=== PATIENT | female | born 1955 | race Caucasian/White ===

== ENCOUNTER 2017-11-16 10:23 | Outpatient (REF) | payer BC, SELFPAY ==
[2017-11-16 21:03] LABS: Anion Gap 10.6 mmol/L (3-11); BUN 24 mg/dL (7-18); CO2 30.4 mmol/L (21.0-32.0); CREATININE 0.86 mg/dL (0.55-1.02); Calcium 9.8 mg/dL (8.5-10.1); Chloride 98 mmol/L (98-107); Cholesterol 269 mg/dL (50-200); Glucose 100 mg/dL (70-100); HDL Cholesterol 63 mg/dL (40-60); LDL CHOLESTEROL 183 mg/dL (<100); Magnesium 1.8 mg/dL (1.8-2.4); Potassium 4.1 mmol/L (3.5-5.1); Sodium 139 mmol/L (136-145); Triglyceride 173 mg/dL (30-150)
== END 2017-11-16 10:43 ==
LOC: NCHCN 10:23
PROVIDERS: Visit Provider Internal Medicine
DX: Z00.00 Encounter for general adult medical examination without abnormal findings (principal); N25.89 Other disorders resulting from impaired renal tubular function; J45.20 Mild intermittent asthma, uncomplicated
CPT/HCPCS: 80048; 80061; 83721; 83735

== ENCOUNTER 2020-12-02 12:54 | Outpatient (REF) | payer MEDICARE, SELFPAY ==
--- NOTE | 2020-12-02 09:15 | SKI_PTH ---
PATIENT: Iris Cruz LOC: [facility] U#:[id number] AGE/SX: 65/F ROOM: RE12/02/[address]: Jaymie Lopez : 1955 BED: DIS: 12/02/2020 SPEC #: [id number] RECD: 12/03/20 12:36 STATUS: SELMA REKamron #: [id number] VALENCIA: 12/02/20 09:[address]: Jaymie Moreno DEPT: Surgical Specimen RECD BY: Jayne Goowdin ENTERED: 12/03/20 12:37 SP TYPE: MONSE WALL DR: None Tissues: 1 - SKIN BIOPSY(SHAVE/PUNCH) Procedures: SKIN LEVEL 4 Comments: [id number]
== END 2020-12-02 12:55 | disposition home or self-care (01) ==
LOC: LBN 12:54
PROVIDERS: Visit Provider Nurse Practitioner Family
DX: L57.0 Actinic keratosis (principal)
CPT/HCPCS: 88305

== ENCOUNTER 2020-12-07 09:55 | Outpatient (REF) | payer OTHER, SELFPAY ==
[2020-12-07 15:09] LABS: Abs Immature Grans 0.05 10^3/uL (0.0-0.06); Absolute Basophil Count 0.08 10^3/uL (0.0-0.2); Absolute Eosinophil Count 0.25 10^3/uL (0.0-0.7); Absolute Lymphocyte Count 1.89 10^3/uL (1.2-3.4); Absolute Monocyte Count 0.81 10^3/uL (0.1-0.8); Absolute Neutrophil Count 5.47 10^3/uL (1.2-6.7); Basophils % 0.9; Eosinophils % 2.9; HCT 46.9 % (36.0-46.0); HGB 14.8 g/dL (11.2-15.7); Immature Grans % 0.6; Lymphocytes % 22.1; MCH 29.8 pg (27.0-33.0); MCHC 31.6 % (32.0-36.0); MCV 94.4 fL (80-95); MPV 9.2 fL (8.0-11.0); Monocytes % 9.5; Nucleated RBC 0 %; Platelet Count 312 10^3/uL (130-400); RBC 4.97 10^6/uL (3.93-5.22); RDW 12.4 % (11.7-14.6); RDW-SD 42.9 fL; WBC 8.55 10^3/uL (4.4-10.8)
[2020-12-07 15:17] LABS: ALT 26 U/L (14-59); AST 20 U/L (15-37); Albumin 3.8 g/dL (3.4-5.0); Alkaline Phosphatase 74 U/L (46-116); Anion Gap 6.9 mmol/L (3-11); BUN 22 mg/dL (7-18); Bilirubin, Total 0.3 mg/dL (0.2-1.0); CO2 31.1 mmol/L (21.0-32.0); CREATININE 0.8 mg/dL (0.55-1.02); Calcium 9.5 mg/dL (8.5-10.1); Calculated LDL 141 mg/dL (<100); Chloride 102 mmol/L (98-107); Cholesterol 220 mg/dL (<200); Glucose 97 mg/dL (74-106); HDL Cholesterol 62 mg/dL (40-60); Potassium 4.3 mmol/L (3.5-5.1); Sodium 140 mmol/L (136-145); Total Protein 6.8 g/dL (6.4-8.2); Triglyceride 86 mg/dL (<150)
== END 2020-12-07 09:56 | disposition home or self-care (01) ==
LOC: NCHCN 09:55
PROVIDERS: Visit Provider Internal Medicine
DX: E78.5 Hyperlipidemia, unspecified (principal); D75.1 Secondary polycythemia
CPT/HCPCS: 80053; 80061; 85025

== ENCOUNTER 2021-09-14 21:15 | Outpatient (REF) | payer MEDICARE, SELFPAY ==
[2021-09-14 21:42] LABS: Abs Immature Grans 0.05 10^3/uL (0.0-0.06); Absolute Basophil Count 0.07 10^3/uL (0.0-0.2); Absolute Eosinophil Count 0.02 10^3/uL (0.0-0.7); Absolute Monocyte Count 0.96 10^3/uL (0.1-0.8); Absolute Neutrophil Count 8.13 10^3/uL (1.2-6.7); Basophils % 0.6; Eosinophils % 0.2; HCT 46.1 % (36.0-46.0); Immature Grans % 0.5; Lymphocytes % 16.3; MCH 30.7 pg (27.0-33.0); MCHC 34.7 % (32.0-36.0); MCV 89 fL (80-95); MPV 9.3 fL (8.0-11.0); Monocytes % 8.7; Neutrophils % 73.7; Platelet Count 341 10^3/uL (130-400); RBC 5.21 10^6/uL (3.93-5.22); RDW 11.9 % (11.7-14.6); RDW-SD 38.8 fL; WBC 11.03 10^3/uL (4.4-10.8)
[2021-09-14 21:59] LABS: TSH (W/Ref FT4) 0.65 uIU/mL (0.36-3.74)
[2021-09-14 22:14] LABS: ALT 24 U/L (14-59); AST 17 U/L (15-37); Albumin 3.9 g/dL (3.4-5.0); Alkaline Phosphatase 73 U/L (46-116); Anion Gap 10.7 mmol/L (3-11); BUN 21 mg/dL (7-18); Bilirubin, Total 0.4 mg/dL (0.2-1.0); CO2 27.3 mmol/L (21.0-32.0); CREATININE 0.9 mg/dL (0.55-1.02); Calcium 9.2 mg/dL (8.5-10.1); Chloride 96 mmol/L (98-107); Glucose 129 mg/dL (74-106); Potassium 3.8 mmol/L (3.5-5.1); Sodium 134 mmol/L (136-145)
== END 2021-09-14 21:16 | disposition home or self-care (01) ==
LOC: NCHCN 21:15
PROVIDERS: Visit Provider Family Medicine
DX: F41.9 Anxiety disorder, unspecified (principal); R63.4 Abnormal weight loss; E66.9 Obesity, unspecified
CPT/HCPCS: 80053; 84443; 85025

== ENCOUNTER 2022-01-03 16:21 | Outpatient (REF) | payer MEDICARE, SELFPAY ==
[2022-01-03 15:08] LABS: Calculated LDL 135 mg/dL (<100); Cholesterol 231 mg/dL (<200); Glucose 110 mg/dL (74-106); HDL Cholesterol 70 mg/dL (40-60); Triglyceride 133 mg/dL (<150)
== END 2022-01-03 16:22 | disposition home or self-care (01) ==
LOC: NCHCN 16:21
PROVIDERS: Visit Provider Internal Medicine
DX: Z13.1 Encounter for screening for diabetes mellitus (principal); Z00.00 Encounter for general adult medical examination without abnormal findings; Z13.220 Encounter for screening for lipoid disorders
CPT/HCPCS: 80061; 82947

== ENCOUNTER 2022-05-19 21:15 | Outpatient (REF) | payer MEDICARE, SELFPAY ==
--- OUTSIDE RECORDS SUMMARY | 2022-05-19 21:22 | XMS_ITS | CCD ---
Author Name Unknown Address [address] [place] [address] [id number] Organization Unknown Address [address] [place], [place] [id number] Care Team Providers Care Educational Manager Name Role Phone MIRTA DE Attending Physician [phone] Vital Signs Unknown or Not Available. Allergies Allergy Code Allergy Type Reaction Status PENICILLINS (CLASS) 16819 Drug allergy Hives Act jos SULFA (sulfonamide) 0 Drug allergy RASH, ITCHING Active Procedures Unknown or Not Available. History of Immunizations Unknown or Not Available. Problems Unknown or Not Available. Results Unknown or Not Available. Active Medications Unknown or Not Available. Medications Administered During Visit Unknown or Not Available. Encounters Encounter Diagnosis Diagnosis Code Start Date Other abnormal and inconclus jos findings on diagnostic imaging of breast R928 02/09/2021 Social History Smoking Status Code Start Date End Date Former smoker [id number] Patient Decision Aids Unknown or Not Available. Discharge Instructions You were admitted to on 02/09/2021 09:22 with a principal diagnosis of Other abnormal and inconclusive findings on diagnostic imaging of breast You were discharged from on 02/09/2021 09:22 Should you have any questions prior to discharge, please contact a member of your healthcare team. If you have left the hospital and have any questions, please contact your primary care physician. Chief Complaint and Reason For Visit Chief Complaint Date of Onset LT BREAST 6 MOS F/U Function Status Unknown or Not Available. Plan of Care Unknown or Not Available. Referral/Transition of Care Unknown or Not Available.
--- OUTSIDE RECORDS SUMMARY | 2022-05-19 21:23 | XMS_ITS | CCD ---
Author Name Unknown Address [address] [place] [address] [id number] Organization Unknown Address [address] [place], [place] [id number] Care Team Providers Care Hydroelectric Plant Structural Engineer Name Role Phone NADYA, WILLIAM Tenzin Attending Physician [phone] Vital Signs Vital Sign Value Unit Date/Time Recent/Initial ? BP Systolic 127 mmHg 09/29/2021 09:20 Initial VS BP Diastolic 62 mmHg 09/29/2021 09:20 Initia l VS Respiratory Rate 22 bpm 09/29/2021 09:20 In itial VS Heart Rate 67 bpm 09/29/2021 09:20 Initial VS O2 % BldC Oximetry 98 % 09/29/2021 09:20 Initial VS Body Temperature 36 degrees 09/29/2021 09:20 In itial VS Allergies Allergy Code Allergy Type Reaction Status PENICILLINS (CLASS) 54945 Drug allergy Hives Act jos SULFA (sulfonamide) 0 Drug allergy RASH, ITCHING Active Procedures Procedure Code Procedure Type Date Colorectal Cancer Screening; Colonoscopy On Individual At High Risk G0105 CPT 09/29/2021 History of Immunizations Unknown or Not Available. Problems Unknown or Not Available. Results Unknown or Not Available. Active Medications Unknown or Not Available. Medications Administered During Visit Unknown or Not Available. Encounters Encounter Diagnosis Diagnosis Code Start Date Encounter for screening for malignant neoplasm o f colon Z1211 09/29/2021 Social History Smoking Status Code Start Date End Date Former smoker [id number] Patient Decision Aids Unknown or Not Available. Discharge Instructions You were admitted to [facility] on 09/29/2021 07:11 with a principal diagnosis of Encounter for screening for malignant neoplasm of colon You had the following procedures done:Colorectal Cancer Screening; Colonoscopy On Individual At High Risk You were discharged from [facility] on 09/29/2021 10:05 Should you have any questions prior to discharge, please contact a member of your healthcare team. If you have left the hospital and have any questions, please contact your primary care physician. Chief Complaint and Reason For Visit Unknown or Not Available. Function Status Unknown or Not Available. Plan of Care Unknown or Not Available. Referral/Transition of Care Unknown or Not Available.
--- OUTSIDE RECORDS SUMMARY | 2022-05-19 21:23 | XMS_ITS | CCD ---
Author Name Unknown Address [address] [place] [address] [id number] Organization Unknown Address [address] [place], [place] [id number] Care Team Providers Care Gunner'S Mate G Name Role Phone KANDI GOMEZ Attending Physician [phone] Vital Signs Unknown or Not Available. Allergies Allergy Code Allergy Type Reaction Status PENICILLINS (CLASS) 74427 Drug allergy Hives Act jos SULFA (sulfonamide) 0 Drug allergy RASH, ITCHING Active Procedures Unknown or Not Available. History of Immunizations Unknown or Not Available. Problems Unknown or Not Available. Results Unknown or Not Available. Active Medications Unknown or Not Available. Medications Administered During Visit Unknown or Not Available. Encounters Encounter Diagnosis Diagnosis Code Start Date Encounter for screening for osteoporosis [id number] 08/03/2020 Social History Smoking Status Code Start Date End Date Former smoker [id number] Patient Decision Aids Unknown or Not Available. Discharge Instructions You were admitted to [facility] on 08/03/2020 13:33 with a principal diagnosis of Encounter for screening for osteoporosis You were discharged from [facility] on 08/03/2020 13:33 Should you have any questions prior to [...]
--- OUTSIDE RECORDS SUMMARY | 2022-05-19 21:23 | XMS_ITS | CCD ---
Author Name Unknown Address [address] [place] [address] [id number] Organization Unknown Address [address] [place], [place] [phone] Care Team Providers Care Tobacco Weigher Name Role Phone MIRTA DE Attending Physician [phone] Vital Signs Unknown or Not Available. Allergies Allergy Code Allergy Type Reaction Status PENICILLINS (CLASS) 89036 Drug allergy Hives Act jos SULFA (sulfonamide) 0 Drug allergy RASH, ITCHING Active Procedures Unknown or Not Available. History of Immunizations Unknown or Not Available. Problems Unknown or Not Available. Results Unknown or Not Available. Active Medications Unknown or Not Available. Medications Administered During Visit Unknown or Not Available. Encounters Encounter Diagnosis Diagnosis Code Start Date Encounter for screening mamm ogram for malignant neoplasm of breast Z1231 08/01/2021 Social History Smoking Status Code Start Date End Date Former smoker [id number] Patient Decision Aids Unknown or Not Available. Discharge Instructions You were admitted to [facility] on 08/01/2021 08:44 with a principal diagnosis of Encounter for screening mammogram for malignant neoplasm of breast You were discharged from [facility] on 08/01/2021 08:44 Should you have any questions prior to discharge, please contact a member of your healthcare team. If you have left the hospital and have any questions, please contact your primary care physician. Chief Complaint and Reason For Visit Chief Complaint Date of Onset SCREENING Function Status Unknown or Not Available. Plan of Care Unknown or Not Available. Referral/Transition of Care Unknown or Not Available.
[2022-05-19 21:54] LABS: Abs Immature Grans 0.08 10^3/uL (0.0-0.06); Absolute Basophil Count 0.09 10^3/uL (0.0-0.2); Absolute Eosinophil Count 0.04 10^3/uL (0.0-0.7); Absolute Lymphocyte Count 1.51 10^3/uL (1.2-3.4); Absolute Monocyte Count 1.16 10^3/uL (0.1-0.8); Basophils % 0.7; Eosinophils % 0.3; HCT 48.6 % (36.0-46.0); HGB 16.7 g/dL (11.2-15.7); Immature Grans % 0.6; Lymphocytes % 12.1; MCH 30.4 pg (27.0-33.0); MCHC 34.4 % (32.0-36.0); MCV 89 fL (80-95); MPV 8.8 fL (8.0-11.0); Monocytes % 9.3; Platelet Count 416 10^3/uL (130-400); RBC 5.49 10^6/uL (3.93-5.22); RDW 12.3 % (11.7-14.6); RDW-SD 40.1 fL; WBC 12.46 10^3/uL (4.4-10.8)
[2022-05-19 21:59] LABS: Absolute Neutrophil Count 9.59 10^3/uL (1.2-6.7)
[2022-05-19 22:03] LABS: Bilirubin Negative (Negative); Blood Negative (Negative); Clarity Clear (Clear); Glucose Negative (Negative); Ketones Negative (Negative); Leukocyte Esterase Negative (Negative); Nitrite Negative (Negative); Urobilinogen 0.2 mg/dL (Up to 0.2)
[2022-05-19 22:11] LABS: ALT 31 U/L (14-59); AST 20 U/L (15-37); Albumin 3.8 g/dL (3.4-5.0); Alkaline Phosphatase 76 U/L (46-116); Anion Gap 6.9 mmol/L (3-11); BUN 27 mg/dL (7-18); Bilirubin, Total 0.4 mg/dL (0.2-1.0); CO2 30.1 mmol/L (21.0-32.0); Calcium 9.6 mg/dL (8.5-10.1); Chloride 98 mmol/L (98-107); Estimated GFR 61.36 (mL/min/1.73m2); Glucose 135 mg/dL (74-106); Potassium 3.4 mmol/L (3.5-5.1); Sodium 135 mmol/L (136-145); TSH 0.85 uIU/mL (0.36-3.74); Total Protein 7.8 g/dL (6.4-8.2)
== END 2022-05-19 21:16 | disposition home or self-care (01) ==
LOC: NCHCN 21:15
PROVIDERS: Visit Provider Internal Medicine
DX: R63.4 Abnormal weight loss (principal); R30.0 Dysuria; R11.0 Nausea
CPT/HCPCS: 80053; 81003; 84443; 85025

== ENCOUNTER 2022-06-22 14:15 | Outpatient (REF) | payer MEDICARE, SELFPAY ==
[2022-06-22 21:04] LABS: Abs Immature Grans 0.05 10^3/uL (0.0-0.06); Absolute Eosinophil Count 0.11 10^3/uL (0.0-0.7); Absolute Lymphocyte Count 1.88 10^3/uL (1.2-3.4); Absolute Monocyte Count 0.87 10^3/uL (0.1-0.8); Absolute Neutrophil Count 6.55 10^3/uL (1.2-6.7); Eosinophils % 1.2; HCT 43.2 % (36.0-46.0); HGB 14.5 g/dL (11.2-15.7); Immature Grans % 0.5; Lymphocytes % 19.7; MCHC 33.6 % (32.0-36.0); MCV 93 fL (80-95); MPV 9.2 fL (8.0-11.0); Monocytes % 9.1; Neutrophils % 68.5; Platelet Count 339 10^3/uL (130-400); RBC 4.67 10^6/uL (3.93-5.22); RDW 12.7 % (11.7-14.6); RDW-SD 43.2 fL; WBC 9.56 10^3/uL (4.4-10.8)
[2022-06-22 21:13] LABS: Anion Gap 6.8 mmol/L (3-11); BUN 29 mg/dL (7-18); CO2 29.2 mmol/L (21.0-32.0); Chloride 101 mmol/L (98-107); Estimated GFR 61.36 (mL/min/1.73m2); Glucose 95 mg/dL (74-106); Potassium 3.8 mmol/L (3.5-5.1); Sodium 137 mmol/L (136-145)
== END 2022-06-22 14:16 | disposition home or self-care (01) ==
LOC: NCHCN 14:15
PROVIDERS: Visit Provider Internal Medicine
DX: D75.1 Secondary polycythemia (principal); E87.6 Hypokalemia
CPT/HCPCS: 80048; 85025

== ENCOUNTER 2022-12-11 13:59 | Outpatient (REF) | payer MEDICARE, SELFPAY ==
[2022-12-11 14:59] LABS: HCT 48.6 % (36.0-46.0); HGB 16.7 g/dL (11.2-15.7); MCH 31.2 pg (27.0-33.0); MCHC 34.4 % (32.0-36.0); MCV 91 fL (80-95); MPV 8.9 fL (8.0-11.0); Platelet Count 325 10^3/uL (130-400); RBC 5.35 10^6/uL (3.93-5.22); RDW 12.5 % (11.7-14.6); RDW-SD 40.9 fL; WBC 6.83 10^3/uL (4.4-10.8)
[2022-12-11 15:40] LABS: Anion Gap 8.5 mmol/L (3-11); BUN 17 mg/dL (7-18); CO2 29.5 mmol/L (21.0-32.0); CREATININE 0.8 mg/dL (0.55-1.02); Calcium 10.3 mg/dL (8.5-10.1); Chloride 94 mmol/L (98-107); Estimated GFR 80.21 (mL/min/1.73m2); Glucose 113 mg/dL (74-106); Potassium 3.4 mmol/L (3.5-5.1); Sodium 132 mmol/L (136-145)
== END 2022-12-11 14:00 | disposition home or self-care (01) ==
LOC: NCHCN 13:59
PROVIDERS: PCP Internal Medicine; Visit Provider Internal Medicine
DX: R78.89 Finding of other specified substances, not normally found in blood (principal); N25.89 Other disorders resulting from impaired renal tubular function
CPT/HCPCS: 80048; 85027

== ENCOUNTER 2023-01-09 15:13 | Outpatient (REF) | payer MEDICARE, SELFPAY ==
[2023-01-09 15:18] LABS: Anion Gap 4.6 mmol/L (3-11); BUN 23 mg/dL (7-18); CO2 31.4 mmol/L (21.0-32.0); CREATININE 0.9 mg/dL (0.55-1.02); Calcium 9.8 mg/dL (8.5-10.1); Chloride 99 mmol/L (98-107); Estimated GFR 69.64 (mL/min/1.73m2); Glucose 91 mg/dL (74-106); Potassium 4.1 mmol/L (3.5-5.1); Sodium 135 mmol/L (136-145)
== END 2023-01-09 15:14 | disposition home or self-care (01) ==
LOC: NCHCN 15:13
PROVIDERS: PCP Internal Medicine; Visit Provider Internal Medicine
DX: N25.89 Other disorders resulting from impaired renal tubular function (principal)
CPT/HCPCS: 80048

== ENCOUNTER 2023-05-14 13:17 | Outpatient (REF) | payer MEDICARE, SELFPAY ==
[2023-05-14 21:40] LABS: Abs Immature Grans 0.15 10^3/uL (0.0-0.06); Absolute Basophil Count 0.13 10^3/uL (0.0-0.2); Absolute Eosinophil Count 0.24 10^3/uL (0.0-0.7); Absolute Lymphocyte Count 2.23 10^3/uL (1.2-3.4); Absolute Monocyte Count 0.82 10^3/uL (0.1-0.8); Absolute Neutrophil Count 6.03 10^3/uL (1.2-6.7); Basophils % 1.4; Eosinophils % 2.5; HCT 51.2 % (36.0-46.0); HGB 16.8 g/dL (11.2-15.7); Immature Grans % 1.6; Lymphocytes % 23.2; MCH 30.3 pg (27.0-33.0); MCHC 32.8 % (32.0-36.0); MCV 92 fL (80-95); MPV 9.3 fL (8.0-11.0); Monocytes % 8.5; Neutrophils % 62.8; Platelet Count 319 10^3/uL (130-400); RBC 5.54 10^6/uL (3.93-5.22); RDW-SD 41.3 fL
[2023-05-14 21:53] LABS: BUN 26 mg/dL (7-18); CREATININE 0.9 mg/dL (0.55-1.02); Calcium 10.2 mg/dL (8.5-10.1); Calculated LDL 147 mg/dL (<100); Chloride 100 mmol/L (98-107); Cholesterol 242 mg/dL (<200); Glucose 96 mg/dL (74-106); HDL Cholesterol 68 mg/dL (40-60); Potassium 4.4 mmol/L (3.5-5.1); Sodium 138 mmol/L (136-145); Triglyceride 136 mg/dL (<150)
== END 2023-05-14 13:18 | disposition home or self-care (01) ==
LOC: NCHCN 13:17
PROVIDERS: PCP Internal Medicine; Visit Provider Family Medicine
DX: E78.5 Hyperlipidemia, unspecified (principal); E87.6 Hypokalemia
CPT/HCPCS: 80048; 80061; 85025

== ENCOUNTER 2024-10-07 15:47 | Outpatient (REF) | payer MEDICARE, SELFPAY ==
[2024-10-07 20:51] LABS: HCT 43.6 % (36.0-46.0); HGB 14.2 g/dL (11.2-15.7); MCH 29.1 pg (27.0-33.0); MCHC 32.6 % (32.0-36.0); MCV 89 fL (80-95); MPV 9.3 fL (8.0-11.0); Platelet Count 357 10^3/uL (130-400); RBC 4.88 10^6/uL (3.93-5.22); RDW 12.4 % (11.7-14.6); RDW-SD 40.9 fL; WBC 9.57 10^3/uL (4.4-10.8)
[2024-10-07 21:07] LABS: Anion Gap 6.2 mmol/L (3-11); BUN 24 mg/dL (7-18); CO2 31.8 mmol/L (21.0-32.0); Calcium 9.7 mg/dL (8.5-10.1); Chloride 100 mmol/L (98-107); Estimated GFR 68.77 (mL/min/1.73m2); Glucose 131 mg/dL (74-106); Potassium 3.3 mmol/L (3.5-5.1); Sodium 138 mmol/L (136-145)
== END 2024-10-07 15:48 | disposition home or self-care (01) ==
LOC: NCHCN 15:47
PROVIDERS: PCP Family Medicine; Visit Provider Family Medicine
DX: E87.6 Hypokalemia (principal); D75.1 Secondary polycythemia; Z00.00 Encounter for general adult medical examination without abnormal findings
CPT/HCPCS: 80048; 85027

== ENCOUNTER 2024-12-03 18:33 | Outpatient (REF) | payer MEDICARE, SELFPAY ==
[2024-12-03 21:36] LABS: HCT 41.0 % (36.0-46.0); HGB 13.4 g/dL (11.2-15.7); MCH 27.3 pg (27.0-33.0); MCHC 32.7 % (32.0-36.0); MCV 84 fL (80-95); MPV 8.7 fL (8.0-11.0); Platelet Count 510 10^3/uL (130-400); RBC 4.91 10^6/uL (3.93-5.22); RDW 13.1 % (11.7-14.6); RDW-SD 39.6 fL; WBC 17.73 10^3/uL (4.4-10.8)
[2024-12-03 21:52] LABS: ALT 24 U/L (14-59); AST 23 U/L (15-37); Albumin 2.9 g/dL (3.4-5.0); Alkaline Phosphatase 113 U/L (46-116); Anion Gap 9.7 mmol/L (3-11); BUN 19 mg/dL (7-18); Bilirubin, Total 0.3 mg/dL (0.2-1.0); CO2 28.3 mmol/L (21.0-32.0); Calcium 9.8 mg/dL (8.5-10.1); Chloride 92 mmol/L (98-107); Estimated GFR 60.61 (mL/min/1.73m2); Glucose 103 mg/dL (74-106); Lipase 31 U/L (<78); Potassium 3.6 mmol/L (3.5-5.1); Sodium 130 mmol/L (136-145); TSH (W/Ref FT4) 1.27 uIU/mL (0.36-3.74); Total Protein 7.7 g/dL (6.4-8.2)
== END 2024-12-03 18:34 | disposition home or self-care (01) ==
LOC: NCHCN 18:33
PROVIDERS: PCP Family Medicine; Visit Provider Family Medicine
DX: K59.00 Constipation, unspecified (principal)
CPT/HCPCS: 80053; 83690; 85027; 84443

== ENCOUNTER 2024-12-23 11:48 | Outpatient (REF) | payer MEDICARE, SELFPAY ==
--- NOTE | 2024-12-23 14:30 | SKI_PTH ---
PATIENT: Iris Cruz LOC: [facility] U#:[id number] AGE/SX: 69/F ROOM: RE12/23/[address]: Yasmeen Rai : 1955 BED: DIS: 12/23/2024 SPEC #: [id number] RECD: 12/24/24 12:27 STATUS: SELMA SENA #: [id number] VALENCIA: 12/23/24 14:[address]: Yasmeen Rai DEPT: Surgical Specimen RECD BY: Jayne Goodwin Tissues: 1 - SKIN BIOPSY(SHAVE/PUNCH) Procedures: SKIN LEVEL 4 Comments: [id number]
== END 2024-12-23 11:49 | disposition home or self-care (01) ==
LOC: NCHCN 11:48
PROVIDERS: PCP Family Medicine; Visit Provider Family Medicine
DX: L57.0 Actinic keratosis (principal)
CPT/HCPCS: 88305